=== PATIENT | female | born 1950 | race Caucasian/White ===

== ENCOUNTER 2022-12-16 07:11 | Inpatient (IN) ==
--- NOTE | 2022-11-14 16:09 | PAT Medication Instructions ---
Medication Instructions Date of Service November 14, 2022 Home Medications L.acidophilus,rhamnosus-B.breve-S.thermophilus 3 billion cell chew tab 1 tab PO QAM amlodipine 5 mg tablet 5 mg PO QAM aspirin 81 mg tablet,delayed release 81 mg PO QAM atorvastatin 40 mg tablet 40 mg PO HS biotin 10,000 mcg disintegrating tablet 10,000 mcg PO QAM calcium carbonate 600 mg-vitamin D3 5 mcg (200 unit) capsule (Calcium 600 + D(3)) 1 cap PO QAM cholecalciferol (vitamin D3) 25 mcg (1,000 unit) tablet (Vitamin D3) 5,000 unit PO 3XWK coQ10 (ubiquinol) 200 mg capsule 400 mg PO QAM cyanocobalamin (vitamin B-12) 1,000 mcg tablet 1,000 mcg PO QAM docusate sodium 100 mg tablet (Stool Softener) 250 mg PO QAM duloxetine 60 mg capsule,delayed release sprinkle 60 mg PO QAM fluticasone propionate 50 mcg/actuation nasal spray,suspension 1 spray intranasal BID PRN irbesartan 300 mg tablet 300 mg PO QAM liraglutide 0.6 mg/0.1 mL (18 mg/3 mL) subcutaneous pen injector (Victoza 2-Stephane) 0.6 mg subcut QAM metformin 1,000 mg tablet 1,000 mg PO QAM montelukast 10 mg tablet 10 mg PO HS fzdqxsmqvjyk-znktveks-lassbw tablet 1 tab PO QAM pantoprazole 40 mg tablet,delayed release 40 mg PO QAM spironolactone 25 mg tablet 25 mg PO QAM sucralfate 1 gram tablet 1 g PO BID acetaminophen 650 mg tablet,extended release 650 mg PO UD PRN albuterol sulfate 90 mcg/actuation aerosol inhaler 1 inh inhalation UD PRN fluticasone 250 mcg-salmeterol 50 mcg/dose blistr powdr for inhalation (Advair Diskus) 1 inh inhalation BID insulin glargine 100 unit/mL (3 mL) subcutaneous pen (Lantus Solostar U-100 Insulin) 20 unit subcut BID potassium chloride 10 mEq capsule,extended release 10 meq PO BID propranolol 60 mg capsule,24 hr,extended release 60 mg PO HS torsemide 20 mg tablet 40 mg PO QAM Continue as directed albuterol sulfate 90 mcg/actuation aerosol inhaler 1 inh inhalation UD PRN(use if needed; please bring with you to hospital day of surgery if possible) ASK your prescriber and surgeon aspirin 81 mg tablet,delayed release 81 mg PO QAM STOP taking 2 weeks before surgery (or as soon as possible if surgery is within 2 weeks) biotin 10,000 mcg disintegrating tablet 10,000 mcg PO QAM coQ10 (ubiquinol) 200 mg capsule 400 mg PO QAM DO NOT take the morning of surgery L.acidophilus,rhamnosus-B.breve-S.thermophilus 3 billion cell chew tab 1 tab PO QAM calcium carbonate 600 mg-vitamin D3 5 mcg (200 unit) capsule (Calcium 600 + D(3)) 1 cap PO QAM cholecalciferol (vitamin D3) 25 mcg (1,000 unit) tablet (Vitamin D3) 5,000 unit PO 3XWK cyanocobalamin (vitamin B-12) 1,000 mcg tablet 1,000 mcg PO QAM docusate sodium 100 mg tablet (Stool Softener) 250 mg PO QAM irbesartan 300 mg tablet 300 mg PO QAM liraglutide 0.6 mg/0.1 mL (18 mg/3 mL) subcutaneous pen injector (Victoza 2-Stephane) 0.6 mg subcut QAM metformin 1,000 mg tablet 1,000 mg PO QAM galqpxjxymeq-ynueacdl-fmzltt tablet 1 tab PO QAM spironolactone 25 mg tablet 25 mg PO QAM sucralfate 1 gram tablet 1 g PO BID potassium chloride 10 mEq capsule,extended release 10 meq PO BID torsemide 20 mg tablet 40 mg PO QAM Take morning of surgery With a small sip of water, OTHERWISE NOTHING TO EAT OR DRINK AFTER MIDNIGHT: amlodipine 5 mg tablet 5 mg PO QAM duloxetine 60 mg capsule,delayed release sprinkle 60 mg PO QAM fluticasone propionate 50 mcg/actuation nasal spray,suspension 1 spray intranasal BID PRN(if needed) pantoprazole 40 mg tablet,delayed release 40 mg PO QAM acetaminophen 650 mg tablet,extended release 650 mg PO UD PRN(if needed) fluticasone 250 mcg-salmeterol 50 mcg/dose blistr powdr for inhalation (Advair Diskus) 1 inh inhalation BID Take evening before surgery atorvastatin 40 mg tablet 40 mg PO HS fluticasone propionate 50 mcg/actuation nasal spray,suspension 1 spray intranasal BID PRN(if needed) montelukast 10 mg tablet 10 mg PO HS sucralfate 1 gram tablet 1 g PO BID fluticasone 250 mcg-salmeterol 50 mcg/dose blistr powdr for inhalation (Advair Diskus) 1 inh inhalation BID insulin glargine 100 unit/mL (3 mL) subcutaneous pen (Lantus Solostar U-100 Insulin) 20 unit subcut BID potassium chloride 10 mEq capsule,extended release 10 meq PO BID propranolol 60 mg capsule,24 hr,extended release 60 mg PO HS Insulin Dependent Diabetic Patients * Test your blood sugar the morning of surgery * If Blood Sugar is GREATER THAN 150, take HALF of your regular dose of: insulin glargine 100 unit/mL (3 mL) subcutaneous pen (Lantus Solostar U-100 Insulin). * If Blood Sugar is LESS THAN 150, DO NOT TAKE ANY: insulin glargine 100 unit/mL (3 mL) subcutaneous pen (Lantus Solostar U-100 Insulin). Other Notes If you have any questions please call us at [phone] or [phone] or [phone] or [phone]
--- NOTE | 2022-11-22 11:06 | Anesthesiology Consultation ---
Date of Service November 22, 2022 Assessment & Plan (1) Encounter for pre-operative examination: - check BSG am DOS. - K 5.2, Cr 1.7-PAT testing to be faxed to PCP: awaiting 11/25/22 PCP Laith Ga pre-op evaluation and 12/09/22 [facility] pre- op evaluation. Chart Review Chart Review: Pending: Refer to Additional Notes / Consult section and Patient seen in Pre Admission Testing Teaching & Discussion Pre-Anesthesia Teaching/Discussion Notes: Instructed NPO after midnight before surgery, except medications with 15 cc of water. Medication instructions provided according to the PAT guidelines. History Surgery Operation Date: 12/16/22 10:05 Proposed Procedures p T12-L2 Decompression, T11-L2 Fusion, Spinal Cord Monitoring - Chase Goss DO Pt accompanied today by her . Height/Weight Height: 5 ft 6 in Weight: 87.5 kg Allergies Allergy/AdvReac Type Severity Reaction Status Date / Time cefaclor Allergy Unknown rash/swelli Verified 11/14/22 14:03 ng Cephalosporins Allergy Unknown RASH/SWELLI Verified 11/14/22 14:03 NG erythromycin base Allergy Unknown rash,edema, Verified 11/22/22 11:14 redness gatifloxacin Allergy Unknown SWELLING Verified 11/14/22 14:03 AND RED RASH Macrolide Antibiotics Allergy Unknown SWELLING Verified 11/14/22 14:03 Penicillins Allergy Unknown RASH Verified 11/14/22 14:03 Quinolones Allergy Unknown RASH/SWELLI Verified 11/14/22 14:03 NG tetracycline Allergy Unknown SWELLING Verified 11/14/22 14:03 AND RED RASH tetanus toxoid, adsorbed AdvReac Unknown "TETANUS Verified 11/14/22 14:03 SERUM"-LG HOT SOLID LUMP AT INJECTION SITE Medications Home Medications Medication Instructions Recorded Confirmed Last Taken L.acidophilus,rhamnosus-B.breve-S.thermophilus 1 tab PO QAM 05/26/20 11/14/22 06/08/20 07:30 3 billion cell chew tab amlodipine 5 mg tablet 5 mg PO QAM 05/26/20 11/14/22 06/09/20 07:00 aspirin 81 mg tablet,delayed 81 mg PO QAM 05/26/20 11/14/22 06/09/20 07:00 release atorvastatin 40 mg tablet 40 mg PO HS 05/26/20 11/14/22 06/08/20 22:00 biotin 10,000 mcg disintegrating 10,000 mcg PO QA 05/26/20 11/14/22 06/08/20 07:00 tablet calcium carbonate 600 mg-vitamin 1 cap PO QA 05/26/20 11/14/22 06/08/20 07:00 D3 5 mcg (200 unit) capsule (Calcium 600 + D(3)) cholecalciferol (vitamin D3) 25 5,000 unit PO 3XWK 05/26/20 11/14/22 06/08/20 07:00 mcg (1,000 unit) tablet (Vitamin D3) coQ10 (ubiquinol) 200 mg capsule 400 mg PO [facility] 05/26/20 11/14/22 06/08/20 07:00 cyanocobalamin (vitamin B-12) 1,000 mcg PO [facility] 05/26/20 11/14/22 06/08/20 07:00 1,000 mcg tablet docusate sodium 100 mg tablet 250 mg PO [facility] 05/26/20 11/14/22 06/08/20 07:00 (Stool Softener) duloxetine 60 mg capsule,delayed 60 mg PO [facility] 05/26/20 11/14/22 06/09/20 07:00 release sprinkle fluticasone propionate 50 1 spray intranasal BID PRN ALLERGY 05/26/20 11/14/22 06/09/20 07:00 mcg/actuation nasal RELIEF spray,suspension irbesartan 300 mg tablet 300 mg PO [facility] 05/26/20 11/14/22 06/08/20 07:00 liraglutide 0.6 mg/0.1 mL (18 mg/3 0.6 mg subcut [facility] 05/26/20 11/14/22 06/08/20 07:00 mL) subcutaneous pen injector (Victoza 2-Stephane) metformin 1,000 mg tablet 1,000 mg PO [facility] 05/26/20 11/14/22 06/08/20 18:00 montelukast 10 mg tablet 10 mg PO 05/26/20 11/14/22 06/08/20 22:00 xecjxzxlvnbd-zmihdfwi-euhszq tablet 1 tab PO [facility] 05/26/20 11/14/22 06/08/20 07:00 pantoprazole 40 mg tablet,delayed 40 mg PO QAM 05/26/20 11/14/22 06/09/20 07:00 release spironolactone 25 mg tablet 25 mg PO QAM 05/26/20 11/14/22 06/08/20 07:00 sucralfate 1 gram tablet 1 g PO BID 05/26/20 11/14/22 06/08/20 18:00 acetaminophen 650 mg 650 mg PO UD PRN Pain 06/09/20 11/14/22 06/08/20 23:00 tablet,extended release albuterol sulfate 90 mcg/actuation 1 inh inhalation UD PRN suspected 11/14/22 11/14/22 Unknown aerosol inhaler asthma fluticasone 250 mcg-salmeterol 50 1 inh inhalation BID 11/14/22 11/14/22 Unknown mcg/dose blistr powdr for inhalation (Advair Diskus) insulin glargine 100 unit/mL (3 20 unit subcut BID 11/14/22 11/14/22 Unknown mL) subcutaneous pen (Lantus Solostar U-100 Insulin) potassium chloride 10 mEq 10 meq PO BID 11/14/22 11/14/22 Unknown capsule,extended release propranolol 60 mg capsule,24 60 mg PO HS 11/14/22 11/14/22 Unknown hr,extended release torsemide 20 mg tablet 40 mg PO QAM 11/14/22 11/14/22 Unknown Past Medical History Medical History Abnormal kidney function Diabetic DrJeannette recommended nephrology visit/not yet scheduled. Anxiety and depression Stable Asthma suspected/ advair has helped never had to use rescue inhaler. CVA (cerebral infarction) (03/07/14) Diabetes mellitus, type 2 IDDM GERD (gastroesophageal reflux disease) Well controlled and stable with med History of melanoma nasal s/p Mohs History of Mohs micrographic surgery for skin cancer NOSE Hyperlipidemia Hypertension controlled, stable per pt Memory problem mild memory loss per pt, signs own consents Patent foramen ovale hx "VERY SMALL PER PATIENT" Peripheral neuropathy Mostly to feet Sleep apnea not currently on CPAP Spinal stenosis Transient ischemic attack (TIA) 2013 - no residual defects- no issues since that time Tremor of both hands tremors of hands/jaw and lip Neuro: [facility]. Suspected parkinsons/not officially dx as of current. Patient denies h/o seizures, heart attack, heart failure, blood clots or blood transfusions. Exercise / Class Metabolic Activity III < 4 Walking/Shop/Light housework (denies chest discomfort or shortness of breath with usual activities) Past Family History Family History Mother Family history of diabetes mellitus Grandmother (Maternal) Family history of diabetes mellitus Past Surgical History Surgical History (Updated 11/22/22 @ 13:06 by Carmen Szymanski PA-C) Family history of reaction to anesthesia MOTHER-EXTREME NAUSEA Fusion of spine lumbar 2013 Ganglion cyst left ring finger 2014 History of appendectomy History of bilateral tubal ligation 1987 History of cardiac cath x3 total 1991 or 1992 (no stents) Dr. Starr hx chest pains...15 yr ago most recent (no stents) - [place] 12/06/2021...Dr. Villarreal wanted to check pressure on right side of heart - [facility] - (no stents) History of carpal tunnel release RT/LEFT 2009 History of cataract surgery RT/LEFT 2016 History of colonoscopy History of dilatation and curettage 1978, 1982 History of esophagogastroduodenoscopy (EGD) History of partial hysterectomy 1990 History of surgery 2020, 2 screws right hip/"sacral infusion" SI joint fusion 06/09/2021 Grade 1 view, MAC 3, ETT 7. History of tonsillectomy and adenoidectomy 1970 History of tooth extraction 2019; implants lower jaw 2019 History of total knee replacement RT 2007/LEFT 2014 Hx of bilateral oophorectomy 1992 Past Anesthesia History No Hx of Anesthesia Complications and Other (mother with nausea) History of PONV No Hx of PONV and No Hx of Motion Sickness Social History Smoking Status: Never smoker Do You Dip or Chew Tobacco: No Hx Alcohol Use: No Hx Substance Use: No substance use type: does not use Review of Systems Patient denies chest pain, shortness of breath, dyspnea on exertion, fever, chills, cough, wheezing, or palpitations. Physical Exam Vital Signs Vitals BP 111/75 P 74 TEMP 98.2 SP02 96% on RA RESP 18 Physical Patient resting comfortably in chair in NAD, alert and oriented, responding appropriately throughout visit Full cervical extension range of motion without pain TMD 3.5 finger breadths Mallampati Score 2 Dentition: intact, denies chipped or loose teeth, caps/crowns, implants or bridges Lungs: normal respiratory effort. Good air movement, clear throughout to auscultation, no adventitious breath sounds Cardiac: regular rate and rhythm, no murmurs noted Carotid arteries: negative bruit bilat Lab Results Anesthesia Preop Results Results Anesthesia Widget: WBC 5.44 K/ul (4.8-10.8) 11/22/22 Hgb 12.3 g/dl (12.0-16.0) 11/22/22 Hct 36.4 % (37.0-47.0) L 11/22/22 Plt 281 K/uL (130-400) 11/22/22 Na 137 mmol/L (136-145) 11/22/22 K 5.2 mmol/L (3.5-5.1) H 11/22/22 Cl 104 mmol/L (98-107) 11/22/22 CO2 24 mmol/L (21-32) 11/22/22 BUN 29 mg/dl (6-23) H 11/22/22 Creat 1.71 mg/dl (0.6-1.2) H 11/22/22 Glucose Level 137 mg/dl (70-99(Fasting)) H 11/22/22 PT 10.0 Seconds (9.0-12.0) 11/22/22 PTT 24.4 Seconds (21.0-31.0) 11/22/22 INR 0.9 (0.9-1.1) 11/22/22 HA1c 7.6 % (4.5-5.6) H 11/22/22 Urine Color Yellow 11/22/22 Urine Appearance Clear (Clear) 11/22/22 Urine pH 5.0 (4.5-7.5) 11/22/22 Urine Specific [place] 1.006 (1.000-1.030) 11/22/22 Urine Protein Negative (Negative) 11/22/22 Urine Glucose (UA) Negative (Negative) 11/22/22 Urine Ketones Negative (Negative) 11/22/22 Urine Blood Negative (Negative) 11/22/22 Urine Nitrite Negative (Negative) 11/22/22 Urine Bilirubin Negative (Negative) 11/22/22 Urine Urobilinogen Negative (Negative) 11/22/22 Urine Leukocyte Esterase Negative (Negative) 11/22/22 Blood Type A Positive 11/22/22 Antibody Screen NEGATIVE 11/22/22 Testing Electrocardiogram Date: 11/22/22 NSR, rate 67 bpm Low voltage QRS Chest X-Ray Date: 11/22/22 No acute cardiopulmonary findings Echocardiogram Date: 05/25/21 EF 55% No regional wall motion abnormalities No significant valvular pathology Stress Test Date: 03/27/22 No ischemia/infarction MPHR 74% EF 52% Pulmonary Function Test Date: 01/28/22 Normal spirogram with a significant response to an inhaled bronchodilator in the smaller airways Normal lung volumes Mild reduction in diffusion capacity even when corrected for alveolar volume
[~2022-12-16 07:11] MED LIST: 300mg Preop IV SCH; 600mg Preop IV SCH; ACETAMINOPHEN 500 MG TAB PO SCH; CeleBREX 200 MG CAP PO SCH; GABAPENTIN 300 MG CAP PO SCH; LR 60ML/HR IV SCH; SODIUM CHLORIDE 0.9% 1000ML IV SCH
[2022-12-16] MEDS ORDERED: LIDOCAINE 2% 2 ML VIAL/AMP(20MG/ML) INFIL ONE (08:15)
[2022-12-16] MEDS ORDERED: MIDAZOLAM HCL 1 MG/ML 2ML VIAL ONE (08:15)
[2022-12-16] MEDS ORDERED: DEXAMETHASONE SOD INJ 4 MG/ML VIAL ONE (08:15)
[2022-12-16] MEDS ORDERED: fentaNYL citrate PF 100 MCG/2 ML VIAL ONE ×2 (08:15→11:32)
[2022-12-16] MEDS ORDERED: ROCURONIUM BROMIDE 10 MG/ML 5 ML VIAL IV ONE ×2 (08:15→10:02)
[2022-12-16] MEDS ORDERED: PROPOFOL IV EMULSION 10 MG/ML 20 ML VIAL IV ONE (08:15)
[2022-12-16] MEDS ORDERED: ONDANSETRON INJ 2 MG/ML 2 ML VIAL ONE (08:15)
--- NOTE | 2022-12-16 08:24 | History & Physical Bridge Note ---
Date of Service December 16, 2022 History & Physical Bridge Note I have examined the patient, reviewed the History & Physical and in the interval since the performance of the History & Physical I have noted the following changes of clinical significance: no changes noted
--- NOTE | 2022-12-16 08:25 | History & Physical Report ---
Date of Service December 16, 2022 Assessment & Plan (1) Neurogenic claudication due to lumbar spinal stenosis: Plan: T12-L2 decompression, T11-L2 fusion History of Present Illness Chief Complaint: Back and leg pain Primary Care Provider: Laith Ga This is a 72-year-old female known to us presents with chronic persistent back and leg pain after failing course of nonoperative care she is here for surgical invention. Allergies Allergy/AdvReac Type Severity Reaction Status Date / Time cefaclor Allergy Unknown rash/swelli Verified 12/16/22 08:06 ng Cephalosporins Allergy Unknown RASH/SWELLI Verified 12/16/22 08:06 NG erythromycin base Allergy Unknown rash,edema, Verified 12/16/22 08:06 redness gatifloxacin Allergy Unknown SWELLING Verified 12/16/22 08:06 AND RED RASH Macrolide Antibiotics Allergy Unknown SWELLING Verified 12/16/22 08:06 Penicillins Allergy Unknown RASH Verified 12/16/22 08:06 Quinolones Allergy Unknown RASH/SWELLI Verified 12/16/22 08:06 NG tetracycline Allergy Unknown SWELLING Verified 12/16/22 08:06 AND RED RASH tetanus toxoid, adsorbed AdvReac Unknown "TETANUS Verified 12/16/22 08:06 SERUM"-LG HOT SOLID LUMP AT INJECTION SITE Home Medications Medication Instructions Recorded Confirmed Type L.acidophilus,rhamnosus-B.breve-S.thermophilus 1 tab PO QAM 05/26/20 12/16/22 History 3 billion cell chew tab amlodipine 5 mg tablet 5 mg PO QAM 05/26/20 12/16/22 History aspirin 81 mg tablet,delayed 81 mg PO QAM 05/26/20 12/16/22 History release atorvastatin 40 mg tablet 40 mg PO HS 05/26/20 12/16/22 History biotin 10,000 mcg disintegrating 10,000 mcg PO QAM 05/26/20 12/16/22 History tablet calcium carbonate 600 mg-vitamin 1 cap PO QAM 05/26/20 12/16/22 History D3 5 mcg (200 unit) capsule (Calcium 600 + D(3)) cholecalciferol (vitamin D3) 25 5,000 unit PO 3XWK 05/26/20 12/16/22 History mcg (1,000 unit) tablet (Vitamin D3) coQ10 (ubiquinol) 200 mg capsule 400 mg PO QAM 05/26/20 12/16/22 History cyanocobalamin (vitamin B-12) 1,000 mcg PO QAM 05/26/20 12/16/22 History 1,000 mcg tablet docusate sodium 100 mg tablet 250 mg PO QAM 05/26/20 12/16/22 History (Stool Softener) duloxetine 60 mg capsule,delayed 60 mg PO QAM 05/26/20 12/16/22 History release sprinkle fluticasone propionate 50 1 spray intranasal BID PRN ALLERGY 05/26/20 12/16/22 History mcg/actuation nasal RELIEF spray,suspension irbesartan 300 mg tablet 300 mg PO QAM 05/26/20 12/16/22 History liraglutide 0.6 mg/0.1 mL (18 mg/3 0.6 mg subcut QAM 05/26/20 12/16/22 History mL) subcutaneous pen injector (JoopLoopza 2-Stephane) metformin 1,000 mg tablet 1,000 mg PO QAM 05/26/20 12/16/22 History montelukast 10 mg tablet 10 mg PO HS 05/26/20 12/16/22 History dspwrpkqtcae-dlpejzwr-kbrntg tablet 1 tab PO QAM 05/26/20 12/16/22 History pantoprazole 40 mg tablet,delayed 40 mg PO QAM 05/26/20 12/16/22 History release spironolactone 25 mg tablet 25 mg PO QAM 05/26/20 12/16/22 History (Aldactone) sucralfate 1 gram tablet (Carafate) 1 g PO BID 05/26/20 12/16/22 History acetaminophen 650 mg 650 mg PO UD PRN Pain 06/09/20 12/16/22 History tablet,extended release albuterol sulfate 90 mcg/actuation 1 inh inhalation UD PRN suspected 11/14/22 12/16/22 History aerosol inhaler asthma fluticasone 250 mcg-salmeterol 50 1 inh inhalation BID 11/14/22 12/16/22 History mcg/dose blistr powdr for inhalation (Advair Diskus) insulin glargine 100 unit/mL (3 20 unit subcut BID 11/14/22 12/16/22 History mL) subcutaneous pen (Lantus Solostar U-100 Insulin) potassium chloride 10 mEq 10 meq PO BID 11/14/22 12/16/22 History capsule,extended release propranolol 60 mg capsule,24 60 mg PO HS 11/14/22 12/16/22 History hr,extended release torsemide 20 mg tablet 40 mg PO QAM 11/14/22 12/16/22 History Past Med/Surg History Medical History (Updated 12/16/22 @ 08:25 by Chase Goss DO) Abnormal kidney function Diabetic recommended nephrology visit/not yet scheduled. Anxiety and depression Stable Asthma suspected/ advair has helped never had to use rescue inhaler. CVA (cerebral infarction) (03/07/14) Diabetes mellitus, type 2 IDDM GERD (gastroesophageal reflux disease) Well controlled and stable with med History of melanoma nasal s/p Mohs History of Mohs micrographic surgery for skin cancer NOSE Hyperlipidemia Hypertension controlled, stable per pt Memory problem mild memory loss per pt, signs own consents Patent foramen ovale hx "VERY SMALL PER PATIENT" Peripheral neuropathy Mostly to feet Sleep apnea not currently on CPAP Spinal stenosis Transient ischemic attack (TIA) 2013 - no residual defects- no issues since that time Tremor of both hands tremors of hands/jaw and lip Neuro: [facility]. Suspected parkinsons/not officially dx as of current. Surgical History Family history of reaction to anesthesia MOTHER-EXTREME NAUSEA Fusion of spine lumbar 2013 Ganglion cyst left ring finger 2015 History of appendectomy History of bilateral tubal ligation 1987 History of cardiac cath x3 total 1991 or 1992 (no stents) Dr. Starr hx chest pains...15 yr ago most recent (no stents) - [place] 12/06/2021...Dr. Villarreal wanted to check pressure on right side of heart - [facility] - (no stents) History of carpal tunnel release RT/LEFT 2008 History of cataract surgery RT/LEFT 2016 History of colonoscopy History of dilatation and curettage 1978, 1982 History of esophagogastroduodenoscopy (EGD) History of partial hysterectomy 1990 History of surgery 2020, 2 screws right hip/"sacral infusion" SI joint fusion 06/09/2021 Grade 1 view, MAC 3, ETT 7. History of tonsillectomy and adenoidectomy 1970 History of tooth extraction 2019; implants lower jaw 2019 History of total knee replacement RT LEFT 2014 Hx of bilateral oophorectomy 1992 Family History Mother Family history of diabetes mellitus Grandmother (Maternal) Family history of diabetes mellitus Social History Smoking Status: Never smoker Second Hand Exposure: Yes ( A CHILD); Do You Dip or Chew Tobacco: No; Hx Alcohol Use: No Hx Substance Use: No Preferred Language: Sudanese Communication Ability: Effective [employer] Required: No Beliefs That Will Affect Care: None Current Living Situation: Spouse Other Information That Helps Us Care for You: No Feels Safe at Home: Yes Assistive Devices: Cane, Denture - Upper, Denture - Lower and Glasses Physical Exam Physical Exam: Patient is alert and oriented Heart regular rhythm Lungs clear Results & Data Results & Data Vital Signs (Past 12 Hours) Vital Signs Temp Pulse Resp BP Pulse Ox O2 Del Method 12/16/22 07:54 36.4 C L 72 18 129/61 97 Room Air
[2022-12-16 08:36] LABS: Anion Gap 9 (3-11); BUN Creatinine Ratio 20.8 (10-20); Blood Urea Nitrogen 31 mg/dl (6-23); Calcium 9.6 mg/dl (8.6-10.3); Carbon Dioxide 24 mmol/L (21-32); Chloride 104 mmol/L (98-107); Creatinine Clr Calc Pharmacy 38.1 ml/min; Est GFR (African American) 40.2 ml/min; Est GFR (Non-African American) 34.7 ml/min; Glucose 132 mg/dl (70-99(Fasting)); Sodium 137 mmol/L (136-145)
[2022-12-16] MEDS ORDERED: BUPIVACAINE/EPINEPHRINE 0.25% 1:200,000 30 ML VIAL ONE (08:58)
[2022-12-16] MEDS ORDERED: FLOSEAL HEMOSTATIC MATRIX 10ML TOP ONE (10:30)
[2022-12-16] MEDS ORDERED: ePHEDrine sulfate 50 MG/ML SYR ONE (10:59)
[2022-12-16] MEDS ORDERED: PHENYLEPHRINE 100MCG/ML 5ML SYR ONE (10:59)
[2022-12-16] MEDS ORDERED: HYDROmorphone INJ 1 MG/ML SYRINGE IV PRN ×2 (11:08→14:07)
[2022-12-16] MEDS ORDERED: PROMETHAZINE HCL 12.5 MG in SODIUM CHLORIDE 0.9% 50 ML IV PRN ×2 (11:08→14:07)
[2022-12-16] MEDS ORDERED: ePHEDrine sulfate 50 MG/ML AMP IV PRN (11:08)
[2022-12-16] MEDS ORDERED: ATROPINE SULFATE 0.1 MG/ML 10ML SYR IV PRN (11:08)
[2022-12-16] MEDS ORDERED: FLUMAZENIL 0.1 MG/1 ML 10 ML VIAL IV PRN (11:08)
[2022-12-16] MEDS ORDERED: ONDANSETRON INJ 2 MG/ML 2 ML VIAL IV PRN ×2 (11:08→14:07)
[2022-12-16] MEDS ORDERED: NALOXONE HCL 0.4 MG/1 ML VIAL/CARP IV PRN ×2 (11:08→14:07)
[2022-12-16] MEDS ORDERED: LABETALOL HCL IV 5 MG/ML 20ML IV PRN (11:08)
[2022-12-16] MEDS ORDERED: GLYCOPYRROLATE 0.2 MG/ML VIAL ONE (11:45)
[2022-12-16] MEDS ORDERED: NEOSTIGMINE METHYLSULFATE 1 MG/ML 10ML VIAL ONE (11:45)
--- NOTE | 2022-12-16 11:52 | Operative Report ---
Post Operative Report Pre & Post Diagnosis Operation Date: 12/16/22 09:05 Pre-Op Diagnosis: Neurogenic claudication due to lumbar spinal stenosis Post-Op Diagnosis: Neurogenic claudication due to lumbar spinal stenosis I identified the patient and participated in the time-out.: Yes Procedure Operation Date: 12/16/22 09:05 Actual Procedures #1 removal of posterior instrumentation L3 on the left and L2 on the right including pedicle screws connectors. #2 exploration of fusion L4 to to L3. #3 lumbar decompression bilaterally vasectomies and foraminotomies T12-L1 L1-L2. #4 posterior spinal fusion T10-L2. #5 please posterior instrumentation T10-L1 with barrel connectors to the previous rods. #6 interbody fusion L1-L2. #7 placement spiral 8 x 22 mm at L1-L2. #8 placement locally harvested morselized Posterior gutters. 9 placement of infuse collagen sponge, mass graft in the posterior gutters and I factor in the interbody space. Surgeon Chase Goss, Director Medical Kelsy Edgar Estimated Blood Loss 350 Findings Consistent with Post-Op Diagnosis Specimens None Indications This is a 72-year-old female presents above-mentioned diagnosis after failing since course of nonoperative care she is here for surgical intervention. Description of Procedure Patient was met with identified informed consent obtained. Patient was then taken to the operative suite underwent patient placed in a prone position on the [place] table top Kade frame. All bony prominences well-padded eyes inspected to ensure no external pressure placed upon the. This point the thoracolumbar spine was prepped and draped in a sterile fashion. Sharp dissection with assistance. Paraspinal down to exposing the lamina and transverse processes of [id number] L1 and instrumentation at L2-L3 bilaterally. I then proceeded to move the pedicle screw and connector at L2 on the left followed by L3 on the right. Explored the fusion mass noted to be mature and intact. I then performed a complete laminectomy of L1 partially negative T12 including bilateral male facetectomies and foraminotomies addressing severe spinal stenosis. Pedicle screws were then placed in [id number] and L1 bilaterally with assistance of fluoroscopy and bilateral transforaminal approach on the right and complete discectomy of L1-L2 was performed endplates guarded to subcortical mean bone and 8 x 22 mm prior cage with I factor tapped in position. The process rods were then contoured and locked into place bilaterally including a barrel connector on the previous rods. The transverse processes of T10-T11 T12-L1 and L2 were then burred to subcortical bone. Infuse collagen sponge for mass graft locally harvested most as a graft was placed in the posterior gutters. 15 round CIELO inserted. The incision was then closed with 1 Vicryl fascia 2-0 Vicryl subcutaneously and 4 Monocryl for final skin closure. Steri-Strips sterile dressings placed. Patient waken taken to PACU in stable condition. Please note spinal cord monitoring was utilized at the procedure no changes noted. Lastly Kelsy Edgar was present that the entire surgeon while the patient positioning complex course of the surgery and possible closure. I attest to the content of the Intraoperative Record and any orders documented therein. Any exceptions are noted below.
[2022-12-16] MEDS: fentaNYL citrate PF 100 MCG/2 ML VIAL IV PRN ×4 (12:42→12:57)
--- NOTE | 2022-12-16 13:08 | Anesthesiology Progress Note ---
Date of Service December 16, 2022 Anesthesia Post Procedure Vital Signs Vital Signs: Temp Pulse Resp BP Pulse Ox O2 Del Method O2 Flow Rate 12/16/22 12:55 66 13 103/59 L 95 Nasal Cannula 2 12/16/22 12:45 64 15 107/61 97 Nasal Cannula 2 12/16/22 12:35 67 15 103/64 96 Oxymask 5 12/16/22 12:25 71 17 89/58 L 95 Oxymask 5 12/16/22 12:15 36.2 C L 81 18 106/74 97 Oxymask 8 12/16/22 07:54 36.4 C L 72 18 129/61 97 Room Air Transfer of Care Handoff Completed per policy Notes Mental Status: alert / awake / arousable Patient Amnestic to Procedure: Yes Nausea / Vomiting: adequately controlled Pain: adequately controlled Airway Patency, RR, SpO2: stable & adequate BP & HR: stable & adequate Hydration State: stable & adequate Anesthetic Complications: no major complications apparent
--- NOTE | 2022-12-16 13:18 | Fluoroscopy Report ---
INTRAOPERATIVE RADIOGRAPHS CLINICAL HISTORY: Thoracolumbar spinal fusion. Fluoro time: 46 seconds Ka,r: 29.38 mGy FINDINGS: 5 spot fluoroscopic views of the thoracolumbar spine are presented. There is postsurgical c hange from extensive thoracolumbar spinal fusion surgery. Discectomy change is noted at a single leve l. The orthopedic hardware appears intact. The exact fusion levels cannot be delineated on the provid ed images. IMPRESSION: Intraoperative images from thoracolumbar spinal fusion surgery as above. Electronically signed by: Orlando Chapman M.D. 12/16/2022 1:17 PM
[2022-12-16] MEDS ORDERED: diphenhydrAMINE Capsule 25 MG CAP PO PRN (14:07)
[2022-12-16] MEDS ORDERED: traMADol HCL 50 MG TABLET PO PRN (14:07)
[2022-12-16] MEDS ORDERED: DO NOT ADMINISTER FLU VACCINE PRN (14:07)
[2022-12-16] MEDS ORDERED: ACETAMINOPHEN 1,000 MG/100 ML VIAL IV PRN (14:07)
[2022-12-16] MEDS ORDERED: hydrOXYzine HCl 25 MG TAB PO PRN (14:07)
[2022-12-16] MEDS ORDERED: SOD PHOSPHATE/SOD BIPHOSPHATE ENEMA 132 ML BTL PR PRN (14:07)
[2022-12-16] MEDS ORDERED: ONDANSETRON 4 MG OD TAB PO PRN (14:07)
[2022-12-16] MEDS ORDERED: FAMOTIDINE 20 MG TAB PO PRN (14:07)
[2022-12-16] MEDS ORDERED: LORazepam 2 MG/1 ML VIAL IV PRN (14:07)
[2022-12-16] MEDS ORDERED: DO NOT ADMINISTER PNEUMOCOCCAL VACCINE PRN (14:07)
[2022-12-16] MEDS ORDERED: PHARMACY GLYCEMIC MGMT CONSULT PRN (14:07)
[2022-12-16] MEDS ORDERED: HYDROmorphone INJ 0.5 MG/0.5 ML SYR IV PRN (14:07)
[2022-12-16] MEDS ORDERED: METOCLOPRAMIDE HCL INJ 5 MG/ML 2 ML VIAL IV PRN (14:07)
[2022-12-16] MEDS ORDERED: LORazepam 0.5 MG TAB PO PRN (14:07)
[2022-12-16] MEDS ORDERED: ALUMINUM/MAGNESIUM SUSP 30 ML UDC PO PRN (14:07)
[2022-12-16] MEDS ORDERED: bisacodyL 10 MG SUPP PR PRN (14:07)
[2022-12-16] MEDS ORDERED: MAGNESIUM HYDROXIDE SUSP 30 ML UDC PO PRN (14:07)
--- NOTE | 2022-12-16 14:21 | Pharmacy Report ---
Pharmacy Glycemic Short Note 2 - Date of Service December 16, 2022 - Glycemic Short BSG Results (Last 24 hours): 12/16/22 12/16/22 12/16/22 07:50 08:08 12:15 Glucose 132 H POC Glucose 142 H 199 H OUTPATIENT ANTIDIABETIC REGIMEN: * Lantus 20 units SC BID * Metformin 1000 mg PO daily * Victoza 0.6 mg SC daily HbA1c: 7.6% (11/22/22) ASSESSMENT: * DL is a 72 year old female POD #0 s/p spinal surgery, received 8 mg IV dexamethasone in OR * Ordered dexamethasone 6 mg IV daily x 3 days starting tomorrow 12/17/22 * Preop BSG of 142 mg/dL, postop BSG of 199 mg/dL * Last dose of Lantus was 20 units last evening * Will give ~0.4 unit/kg basal now to cover steroids w/ weight-based stress of 3 Novolog PLAN FOR INPATIENT GLYCEMIC CONTROL: * Hold outpatient oral diabetes medications * Basal insulin * Lantus 35 units SQ x 1 * Reassess in AM * Bolus insulin * NovoLog per scale ACHS or Q6hrs while NPO * Goal Range: Low 110 mg/dL - High 140 mg/dL * Correction Factor: 20 mg/dL/unit * Nutritional / Prandial insulin per carb ratio of 1 unit per 6 grams CHO consumed
[2022-12-16] MEDS ORDERED: DEXTROSE 50% 50 ML SYRINGE IV PRN (14:30)
[2022-12-16] MEDS ORDERED: GLUCOSE 40% GEL 15 GM TUBE PO PRN (14:30)
[2022-12-16] MEDS ORDERED: CARBOHYDRATES FOR HYPOGLYCEMIA PO PRN (14:30)
[2022-12-16] MEDS ORDERED: LANTUS PER UNIT CHARGE SC ONE (14:30)
[2022-12-16] MEDS ORDERED: GLUCAGON FOR INJ 1 MG VIAL IM PRN (14:30)
[2022-12-16] MEDS ORDERED: GLUCOSE 10 TAB/TUBE PO PRN (14:30)
[2022-12-16] MEDS: SODIUM CHLORIDE 0.9% 1000ML 1,000 ML IV SCH ×2 (15:07→23:56)
[2022-12-16] MEDS: CHOLECALCIFEROL 5,000 UNITS 125 MCG TAB PO SCH (15:08)
--- NOTE | 2022-12-16 15:17 | Hospitalist Consultation ---
Date of Consultation December 16, 2022 Assessment & Plan (1) Neurogenic claudication due to lumbar spinal stenosis: POD #0 - T12-L2 decompression/fusion. Medical problems include diabetes and hypertension - Pain control, DVT prophylaxis, activity per primary service - Encourage incentive spirometry - discussed importance with patient - Blood loss 350 ml - check CBC in am to monitor for blood loss anemia - Pt reports some visual changes today post-anesthesia but reports similar issues in the past that resolve within 24 hours - will continue to monitor, if worsening then consider additional work-up. Will re-evaluate tomorrow. (2) DM (diabetes mellitus): Pharmacy consulted for glycemic management - appreciate input (3) HTN (hypertension): (4) High cholesterol: (5) TIA (transient ischemic attack): Plan Outpatient notes from PCP and cardiology as part of pre-operative evaluation were reviewed. Continue other home medications as appropriate. Beta-alessandra will be particularly important in the post-operative period in view of cardiac history. Pt seen and evaluated with collaborating physician, Dr. Melgoza. Plan of care discussed and as outlined above. Thank you for this consultation. We will continue to follow the patient with you. [facility] via [employer]. Please don't hesitate to reach out with questions. Carolyn Arellano PA-C Supervising Physician Co-Signing Physician Notes Reviewed findings along with JOEY Arellano . continue home meds along with beta blockers will continue to follow along side . Thank you for the consultation History of Present Illness Reason for Consultation: Post-operative medical management Requesting Physician: Dr. Chase Goss Attending Physician: Chase Goss DO History of Present Illness This is a 72 y/o female with a history of DM2, HTN, TIA, GERD, sleep apnea (not on CPAP), asthma, and spinal stenosis who underwent T12-L2 decompression/fusion today by Dr. Goss. She had a prior back surgery ten years ago and a sacral fusion two years, which she tolerated without issue. Currently, seen post- operatively in her room and reports pain is overall controlled though still present - rates as 4-5/10 but denies need for additional pain meds at present. She denies nausea or vomiting and is tolerating liquids without difficulty. Denies chest pain, palpitations, dyspnea, LO, dizziness, numbness or tingling. She notes some diplopia but reports similar after previous surgeries that resolved by the next day. Current symptoms are no different than prior. She has a Rivera in place, which is draining clear kian urine. Pre-operative blood sugars have been well-controlled with sugars in the 120s. Allergies Allergy/AdvReac Type Severity Reaction Status Date / Time cefaclor Allergy Unknown rash/swelli Verified 12/16/22 08:06 ng Cephalosporins Allergy Unknown RASH/SWELLI Verified 12/16/22 08:06 NG erythromycin base Allergy Unknown rash,edema, Verified 12/16/22 08:06 redness gatifloxacin Allergy Unknown SWELLING Verified 12/16/22 08:06 AND RED RASH Macrolide Antibiotics Allergy Unknown SWELLING Verified 12/16/22 08:06 Penicillins Allergy Unknown RASH Verified 12/16/22 08:06 Quinolones Allergy Unknown RASH/SWELLI Verified 12/16/22 08:06 NG tetracycline Allergy Unknown SWELLING Verified 12/16/22 08:06 AND RED RASH tetanus toxoid, adsorbed AdvReac Unknown "TETANUS Verified 12/16/22 08:06 SERUM"-LG HOT SOLID LUMP AT INJECTION SITE Home Medications Medication Instructions Recorded Confirmed Type L.acidophilus,rhamnosus-B.breve-S.thermophilus 1 tab PO QAM 05/26/20 12/16/22 History 3 billion cell chew tab amlodipine 5 mg tablet 5 mg PO QAM 05/26/20 12/16/22 History aspirin 81 mg tablet,delayed 81 mg PO QAM 05/26/20 12/16/22 History release atorvastatin 40 mg tablet 40 mg PO HS 05/26/20 12/16/22 History biotin 10,000 mcg disintegrating 10,000 mcg PO QAM 05/26/20 12/16/22 History tablet calcium carbonate 600 mg-vitamin 1 cap PO QAM 05/26/20 12/16/22 History D3 5 mcg (200 unit) capsule (Calcium 600 + D(3)) cholecalciferol (vitamin D3) 25 5,000 unit PO 3XWK 05/26/20 12/16/22 History mcg (1,000 unit) tablet (Vitamin D3) coQ10 (ubiquinol) 200 mg capsule 400 mg PO QAM 05/26/20 12/16/22 History cyanocobalamin (vitamin B-12) 1,000 mcg PO QAM 05/26/20 12/16/22 History 1,000 mcg tablet docusate sodium 100 mg tablet 250 mg PO QAM 05/26/20 12/16/22 History (Stool Softener) duloxetine 60 mg capsule,delayed 60 mg PO QAM 05/26/20 12/16/22 History release sprinkle fluticasone propionate 50 1 spray intranasal BID PRN ALLERGY 05/26/20 12/16/22 History mcg/actuation nasal RELIEF spray,suspension irbesartan 300 mg tablet 300 mg PO QAM 05/26/20 12/16/22 History liraglutide 0.6 mg/0.1 mL (18 mg/3 0.6 mg subcut QAM 05/26/20 12/16/22 History mL) subcutaneous pen injector (Pazienza 2-Stephane) metformin 1,000 mg tablet 1,000 mg PO QAM 05/26/20 12/16/22 History montelukast 10 mg tablet 10 mg PO HS 05/26/20 12/16/22 History yjodeiywqpea-sompbhzd-jqkrkh tablet 1 tab PO QAM 05/26/20 12/16/22 History pantoprazole 40 mg tablet,delayed 40 mg PO QAM 05/26/20 12/16/22 History release spironolactone 25 mg tablet 25 mg PO QAM 05/26/20 12/16/22 History (Aldactone) sucralfate 1 gram tablet (Carafate) 1 g PO BID 05/26/20 12/16/22 History acetaminophen 650 mg 650 mg PO UD PRN Pain 06/09/20 12/16/22 History tablet,extended release albuterol sulfate 90 mcg/actuation 1 inh inhalation UD PRN suspected 11/14/22 12/16/22 History aerosol inhaler asthma fluticasone 250 mcg-salmeterol 50 1 inh inhalation BID 11/14/22 12/16/22 History mcg/dose blistr powdr for inhalation (Advair Diskus) insulin glargine 100 unit/mL (3 20 unit subcut BID 11/14/22 12/16/22 History mL) subcutaneous pen (Lantus Solostar U-100 Insulin) potassium chloride 10 mEq 10 meq PO BID 11/14/22 12/16/22 History capsule,extended release propranolol 60 mg capsule,24 60 mg PO HS 11/14/22 12/16/22 History hr,extended release torsemide 20 mg tablet 40 mg PO QAM 11/14/22 12/16/22 History Patient History Medical History (Updated 12/16/22 @ 08:25 by Chase Goss, DO) Abnormal kidney function Diabetic recommended nephrology visit/not yet scheduled. Anxiety and depression Stable Asthma suspected/ advair has helped never had to use rescue inhaler. CVA (cerebral infarction) (03/07/14) Diabetes mellitus, type 2 IDDM GERD (gastroesophageal reflux disease) Well controlled and stable with med History of melanoma nasal s/p Mohs History of Mohs micrographic surgery for skin cancer NOSE Hyperlipidemia Hypertension controlled, stable per pt Memory problem mild memory loss per pt, signs own consents Patent foramen ovale hx "VERY SMALL PER PATIENT" Peripheral neuropathy Mostly to feet Sleep apnea not currently on CPAP Spinal stenosis Transient ischemic attack (TIA) 2013 - no residual defects- no issues since that time Tremor of both hands tremors of hands/jaw and lip Neuro: [facility]. Suspected parkinsons/not officially dx as of current. Surgical History Family history of reaction to anesthesia MOTHER-EXTREME NAUSEA Fusion of spine lumbar 2013 Ganglion cyst left ring finger 2014 History of appendectomy History of bilateral tubal ligation 1987 History of cardiac cath x3 total 1991 or 1992 (no stents) Dr. Starr hx chest pains...15 yr ago most recent (no stents) - [place] 12/06/2021...Dr. Villarreal wanted to check pressure on right side of heart - [facility] - (no stents) History of carpal tunnel release RT/LEFT 2008 History of cataract surgery RT/LEFT 2016 History of colonoscopy History of dilatation and curettage 1978, 1982 History of esophagogastroduodenoscopy (EGD) History of partial hysterectomy 1990 History of surgery 2020, 2 screws right hip/"sacral infusion" SI joint fusion 06/09/2021 Grade 1 view, MAC 3, ETT 7. 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: No Beliefs That Will Affect Care: None Current Living Situation: Spouse Other Information That Helps Us Care for You: No Feels Safe at Home: Yes Assistive Devices: Cane, Denture - Upper, Denture - Lower and Glasses Review of Systems Review of Systems: All systems reviewed & are unremarkable except as noted in HPI & below Constitutional: no fever, no chills and no anorexia Eyes: + diplopia Ear, Nose, Mouth, Throat: no nasal congestion and no sore throat Respiratory: no cough and no dyspnea Cardiovascular: no chest pain, no palpitations and no syncope Gastrointestinal: no abdominal pain, no nausea and no vomiting Genitourinary: no hematuria Musculoskeletal: + back pain Integumentary: no rash Neurologic: no generalized weakness, no tingling and no numbness Psychiatric: no depression and no anxiety Physical Exam Constitutional: well developed and well nourished; no acute distress Eyes: + anicteric sclerae ENMT: external ear and nose normal, oropharynx normal Neck: trachea midline Respiratory: no respiratory distress and no labored breathing Auscultation: lungs clear to auscultation bilaterally; no rales, no rhonchi and no wheezes Cardiovascular: Rate/Rhythm: regular rate and regular rhythm Gastrointestinal (Abdomen): Inspection/Auscultation: normal bowel sounds; abdomen not distended Percussion/Palpation: abdomen soft Musculoskeletal: Head/Neck/Chest: normocephalic, head atraumatic and neck espana pple Skin: no jaundice Neurologic: moves all extremities; no focal motor deficits and not confused Psychiatric: A+Ox3, euthymic affect Results & Data Results & Data Vital Signs (Past 12 Hours) Vital Signs Temp Pulse Pulse Resp BP Pulse Ox O2 Del Method 12/16/22 14:23 36.8 C 73 16 105/68 98 Room Air 12/16/22 14:22 70 18 99/65 L 95 Nasal Cannula 12/16/22 13:25 Nasal Cannula 12/16/22 13:25 36.5 C 71 18 91/59 L 94 Nasal Cannula 12/16/22 13:05 36.4 C L 69 15 110/58 L 96 Nasal Cannula 12/16/22 12:55 66 13 103/59 L 95 Nasal Cannula 12/16/22 12:45 64 15 107/61 97 Nasal Cannula 12/16/22 12:35 67 15 103/64 96 Oxymask 12/16/22 12:25 71 17 89/58 L 95 Oxymask 12/16/22 12:15 36.2 C L 81 18 106/74 97 Oxymask 12/16/22 07:54 36.4 C L 72 18 129/61 97 Room Air O2 Flow Rate 12/16/22 14:23 12/16/22 14:22 2 12/16/22 13:25 2 12/16/22 13:25 2 12/16/22 13:05 2 12/16/22 12:55 2 12/16/22 12:45 2 12/16/22 12:35 5 12/16/22 12:25 5 12/16/22 12:15 8 12/16/22 07:54 Laboratory Results 12/16/22 12/16/22 12/16/22 07:36 07:50 08:08 Sodium 137 Potassium TNP Chloride 104 Carbon Dioxide 24 Anion Gap 9 BUN 31 H Creatinine 1.49 H Est Cr Clr Drug Dosing 38.1 Est GFR ( Amer) 40.2 Est GFR (Non-Af Amer) 34.7 BUN/Creatinine Ratio 20.8 H Glucose 132 H POC Glucose 142 H Calcium 9.6 Blood Type A Positive Antibody Screen NEGATIVE Crossmatch See Detail 12/16/22 12/16/22 12/16/22 08:54 12:15 14:21 Sodium Potassium 4.3 Chloride Carbon Dioxide Anion Gap BUN Creatinine Est Cr Clr Drug Dosing Est GFR ( Amer) Est GFR (Non-Af Amer) BUN/Creatinine Ratio Glucose POC Glucose 199 H 196 H Calcium Blood Type Antibody Screen Crossmatch 12/16/22 16:42 Sodium Potassium Chloride Carbon Dioxide Anion Gap BUN Creatinine Est Cr Clr Drug Dosing Est GFR ( Amer) Est GFR (Non-Af Amer) BUN/Creatinine Ratio Glucose POC Glucose 247 H Calcium Blood Type Antibody Screen Crossmatch
[2022-12-16] MEDS: INSULIN ASPART PER UNIT CHARGE SC SCH ×3 (15:18→20:55)
[2022-12-16] MEDS: oxyCODONE HCL IR 5 MG TAB (IMMEDIATE RELEASE) PO PRN ×2 (16:15→20:55)
[2022-12-16] MEDS: CLINDAMYCIN/D5W 600 MG/50 ML BAG IV SCH (17:26)
[2022-12-16] MEDS: POTASSIUM CHLORIDE 10 MEQ TABCR PO SCH (20:58)
[2022-12-16] MEDS: SUCRALFATE 1 GM TAB PO SCH (20:58)
[2022-12-16] MEDS: PROPRANOLOL HCL 60 MG LA CAP PO SCH (20:58)
[2022-12-16] MEDS: DOCUSATE SODIUM/SENNA 50/8.6MG TAB PO SCH (20:58)
[2022-12-16] MEDS: MONTELUKAST SODIUM 10 MG TABLET PO SCH (20:58)
[2022-12-16] MEDS: ATORVASTATIN 40 MG TAB PO SCH (20:58)
[2022-12-17] MEDS ORDERED: INSULIN ASPART PER UNIT CHARGE SC SCH
[2022-12-17] MEDS: CLINDAMYCIN/D5W 600 MG/50 ML BAG IV SCH (02:05)
[2022-12-17] MEDS ORDERED: COUGH DROP (SUGAR FREE) LOZ 24 LOZ/1 BOX BUCCAL STA (02:15)
[2022-12-17] MEDS ORDERED: COUGH DROP (SUGAR FREE) LOZ 24 LOZ/1 BOX BUCCAL ONE (02:17)
[2022-12-17] MEDS: oxyCODONE HCL IR 5 MG TAB (IMMEDIATE RELEASE) PO PRN ×2 (02:19→20:30)
[2022-12-17] MEDS: POLYETHYLENE (MIRALAX) 17 GM PACK PO SCH ×4 (05:17→23:40)
[2022-12-17 06:57] LABS: Basophils # (auto) 0.01 K/uL (0.00-0.20); Basophils % (auto) 0.1 %; Hemoglobin 9.5 g/dl (12.0-16.0); Immature Granulocytes # (auto) 0.06 K/uL (0.01-0.20); Immature Granulocytes % (auto) 0.6 %; Lymphocytes # (auto) 1.24 K/uL (1.20-3.40); Lymphocytes % (auto) 12.2 %; Mean Corpuscular Hemoglobin 31.8 pg (25.0-34.0); Mean Corpuscular Hgb Conc 32.8 g/dL (32.0-36.0); Mean Platelet Volume 9.9 fL (9.4-12.4); Monocytes # (auto) 1.06 K/uL (0.11-0.59); Monocytes % (auto) 10.4 %; Neutrophils # (auto) 7.82 K/uL (1.40-6.50); Neutrophils % (auto) 76.7 %; Platelet Count 236 K/uL (130-400); RDW Coefficient of Variation 12.4 % (11.5-14.5); RDW Standard Deviation 43.7 fL (36.4-46.3); Red Blood Count 2.99 M/uL (4.20-5.40); White Blood Count 10.19 K/ul (4.8-10.8)
[2022-12-17 07:18] LABS: BUN Creatinine Ratio 21.4 (10-20); Calcium 8.9 mg/dl (8.6-10.3); Creatinine Clr Calc Pharmacy 48.5 ml/min; Est GFR (African American) 53.9 ml/min; Est GFR (Non-African American) 46.5 ml/min; Potassium 4.8 mmol/L (3.5-5.1)
--- NOTE | 2022-12-17 08:30 | Pharmacy Report ---
Pharmacy Glycemic Short Note 2 - Date of Service December 17, 2022 - Glycemic Short BSG Results (Last 24 hours): 12/16/22 12/16/22 12/16/22 07:50 12:15 14:21 Glucose 132 H POC Glucose 199 H 196 H 12/16/22 12/16/22 12/16/22 16:42 20:38 23:52 Glucose POC Glucose 247 H 146 H 104 H 12/17/22 12/17/22 06:12 07:43 Glucose 163 H POC Glucose 141 H OUTPATIENT ANTIDIABETIC REGIMEN: * Lantus 20 units SC BID * Metformin 1000 mg PO daily * Victoza 0.6 mg SC daily HbA1c: 7.6% (11/22/22) ASSESSMENT: 12/17/22: * BSGs trended down nicely postoperatively w/ fasting BSG of 141 mg/dL this morning * BSG > 300 mg/dL at lunch - will give one-time IV insulin bolus, further tighten carb ratio, and add additional basal 12/16/22: * DL is a 72 year old female POD #0 s/p spinal surgery, received 8 mg IV dexamethasone in OR * Ordered dexamethasone 6 mg IV daily x 3 days starting tomorrow 12/17/22 * Preop BSG of 142 mg/dL, postop BSG of 199 mg/dL * Last dose of Lantus was 20 units last evening * Will give ~0.4 unit/kg basal now to cover steroids w/ weight-based stress of 3 Novolog PLAN FOR INPATIENT GLYCEMIC CONTROL: * Hold outpatient oral diabetes medications * Basal insulin * Lantus 35 units SQ daily this morning * Lantus 10 units SC x 1 at lunch * Lantus 45 units SC daily starting tomorrow (give with IV dexamethasone) * Bolus insulin * NovoLog per scale ACHS or Q6hrs while NPO * Goal Range: Low 110 mg/dL - High 140 mg/dL * Correction Factor: 20 mg/dL/unit * Nutritional / Prandial insulin per carb ratio of 1 unit per 5 grams CHO consumed
[2022-12-17] MEDS: TORSEMIDE 20 MG TAB PO SCH (08:31)
[2022-12-17] MEDS: POTASSIUM CHLORIDE 10 MEQ TABCR PO SCH ×2 (08:31→20:32)
[2022-12-17] MEDS: SPIRONOLACTONE 25 MG TAB PO SCH (08:31)
[2022-12-17] MEDS: SUCRALFATE 1 GM TAB PO SCH ×2 (08:31→20:33)
[2022-12-17] MEDS: CYANOCOBALAMIN (B-12) 500 MCG TABLET PO SCH (08:31)
[2022-12-17] MEDS: ASPIRIN 81 MG ECTAB PO SCH (08:31)
[2022-12-17] MEDS: amLODIPine BESYLATE 5 MG TAB PO SCH (08:31)
[2022-12-17] MEDS: CEROVITE ADV FORMULA TAB PO SCH (08:32)
[2022-12-17] MEDS: DULoxetine HCL 60 MG CAP PO SCH (08:32)
[2022-12-17] MEDS: LOSARTAN POTASSIUM 50 MG TAB PO SCH (08:32)
[2022-12-17] MEDS: PANTOprazole 40 MG TAB PO SCH (08:32)
[2022-12-17] MEDS: FLUTICASONE/VILANTEROL 200/25MCG 14 PUFFS/INHALER INH SCH (08:33)
[2022-12-17] MEDS: dexAMETHasone 6 MG in SYRINGE 0 ML IV SCH (08:33)
[2022-12-17] MEDS: INSULIN ASPART PER UNIT CHARGE SC SCH ×4 (08:36→20:30)
[2022-12-17] MEDS ORDERED: NON-FORMULARY MEDICATION (L.Acid-L.Rham-B.Breve-S.Therm 3 billion cell Tablet,Chewable) PO SCH (09:00)
[2022-12-17] MEDS ORDERED: NON-FORMULARY MEDICATION (Liraglutide [Victoza 2-Pak] 0.6 mg/0.1 mL (18 mg/3 mL) Pen Injec SQ SCH (09:00)
[2022-12-17] MEDS ORDERED: LANTUS PER UNIT CHARGE SC SCH (09:00)
[2022-12-17] MEDS ORDERED: NON-FORMULARY MEDICATION (Coq10 (Ubiquinol) 200 mg Capsule) PO SCH (09:00)
--- NOTE | 2022-12-17 10:27 | Orthopedic Progress Note ---
Date of Service December 17, 2022 Assessment & Plan (1) Neurogenic claudication due to lumbar spinal stenosis: Plan: This time initiate physical therapy monitor her CIELO output anticipate discharge home in the next few days. Admission and Anticipated Discharge Date Admission Date: December 16, 2022 Subjective Pain well controlled leg pain improved Physical Exam Physical Exam: Patient is in the chair at the bedside. She is comfortable. His strength testing. Results & Data Vital Signs (Past 12 Hours) Vital Signs Temp Pulse Resp BP Pulse Ox O2 Del Method O2 Flow Rate 12/17/22 07:30 36.5 C 74 16 101/66 91 Room Air 12/17/22 05:18 116/71 12/17/22 03:43 36.5 C 77 20 99/62 L 94 Nasal Cannula 1 12/16/22 23:55 36.4 C L 80 18 128/84 95 Room Air Queries Orthopedic Spine Acute Posthemorrhagic Anemia: Yes Obesity: Yes
[2022-12-17] MEDS ORDERED: INSULIN HUMAN REGULAR PER UNIT 8 UNITS in SYRINGE 7.92 ML IV ONE (12:00)
[2022-12-17] MEDS ORDERED: LANTUS PER UNIT CHARGE SC ONE (12:00)
--- NOTE | 2022-12-17 14:04 | Hospitalist Progress Note ---
Date of Service December 17, 2022 Assessment & Plan (1) Neurogenic claudication due to lumbar spinal stenosis: Plan: POD #1 - T12-L2 decompression/fusion. Medical problems include diabetes and hypertension - Pain control, DVT prophylaxis, activity per primary service - Encourage incentive spirometry - discussed importance with patient - Blood loss 350 ml -Postop CBC with hemoglobin of 9.5. (2) DM (diabetes mellitus): Plan: Pharmacy consulted for glycemic management - appreciate input Hold home metformin (3) HTN (hypertension): Plan: On amlodipine, losartan, spironolactone, torsemide and propranolol. Continue with holding parameters. (4) High cholesterol: Plan: Continue Lipitor (5) TIA (transient ischemic attack): Plan: On aspirin and Lipitor Plan Please note the above document was generated using voice recognition software. It may contain grammatical, syntax or spelling errors. Any formal questions or concerns about the content, text or information contained within the body of this dictation should be directly addressed to the provider for clarification Admission and Anticipated Discharge Date Admission Date: December 16, 2022 Subjective Patient seen and examined at bedside. She is sitting up on the chair at the side of the bed; not in distress. Reports that pain is well controlled. Passing gas; no bowel movements yet. No fever, no chills, shortness of breath or chest pain Review of Systems Review of Systems: All systems reviewed & are unremarkable except as noted in Subjective Physical Exam Physical Exam: Constitutional: WD/WN, vitals as above, NAD, sitting up in bed, pleasant, conversing easily Respiratory: normal respiratory effort, lungs clear to auscultation, no wheeze, rales, rhonchi. Normal insp/exp effort, no accessory muscle use Cardiovascular: RRR, no murmur, no edema Vessels: no JVD or carotid bruit Chest: normal inspection of chest Abdomen: normal bowel sounds, soft, nontender, no hepatosplenomegaly Musculoskeletal: no cyanosis or clubbing, extremities motor strength 5/5. CIELO drain in place with serosanguinous output. Skin: no rashes, warm and dry normal turgor Neurologic: PERRL, EOMI, accommodation nl, no face palsy, no dysarthria CN's II- XI intact bilaterally and moves all extremities Psychiatric: A+Ox3, euthymic affect Constitutional: well developed and well nourished; no acute distress Eyes: + anicteric sclerae ENMT: external ear and nose normal, oropharynx normal Neck: trachea midline Respiratory: no respiratory distress and no labored breathing Auscultation: lungs clear to auscultation bilaterally; no rales, no rhonchi and no wheezes Cardiovascular: Rate/Rhythm: regular rate and regular rhythm Gastrointestinal (Abdomen): Inspection/Auscultation: normal bowel sounds; abdomen not distended Percussion/Palpation: abdomen soft Musculoskeletal: Head/Neck/Chest: normocephalic, head atraumatic and neck supple Skin: no jaundice Neurologic: moves all extremities; no focal motor deficits and not confused Psychiatric: A+Ox3, euthymic affect Results & Data Results & Data Vital Signs (Past 12 Hours) Vital Signs Temp Pulse Resp BP Pulse Ox O2 Del Method O2 Flow Rate 12/17/22 07:30 36.5 C 74 16 101/66 91 Room Air 12/17/22 05:18 116/71 12/17/22 03:43 36.5 C 77 20 99/62 L 94 Nasal Cannula 1 Laboratory Results Laboratory Results WBC 10.19 K/ul (4.8-10.8) 12/17/22 06:12 RBC 2.99 M/uL (4.20-5.40) L 12/17/22 06:12 Hgb 9.5 g/dl (12.0-16.0) L 12/17/22 06:12 Hct 29.0 % (37.0-47.0) L 12/17/22 06:12 MCV 97.0 fL (80.0-100.0) 12/17/22 06:12 MCH 31.8 pg (25.0-34.0) 12/17/22 06:12 MCHC 32.8 g/dL (32.0-36.0) 12/17/22 06:12 RDW Std Deviation 43.7 fL (36.4-46.3) 12/17/22 06:12 RDW Coeff of Kelsey 12.4 % (11.5-14.5) 12/17/22 06:12 Plt Count 236 K/uL (130-400) 12/17/22 06:12 MPV 9.9 fL (9.4-12.4) 12/17/22 06:12 Immature Gran % (Auto) 0.6 % 12/17/22 06:12 Neut % (Auto) 76.7 % 12/17/22 06:12 Lymph % (Auto) 12.2 % 12/17/22 06:12 Bradley % (Auto) 10.4 % 12/17/22 06:12 Eos % (Auto) 0.0 % 12/17/22 06:12 Baso % (Auto) 0.1 % 12/17/22 06:12 Neut # (Auto) 7.82 K/uL (1.40-6.50) H 12/17/22 06:12 Lymph # (Auto) 1.24 K/uL (1.20-3.40) 12/17/22 06:12 Bradley # (Auto) 1.06 K/uL (0.11-0.59) H 12/17/22 06:12 Eos # (Auto) 0.00 K/uL (0.00-0.50) 12/17/22 06:12 Baso # (Auto) 0.01 K/uL (0.00-0.20) 12/17/22 06:12 Immature Gran # (Auto) 0.06 K/uL (0.01-0.20) 12/17/22 06:12 Sodium 136 mmol/L (136-145) 12/17/22 06:12 Potassium 4.8 mmol/L (3.5-5.1) 12/17/22 06:12 Chloride 104 mmol/L (98-107) 12/17/22 06:12 Carbon Dioxide 27 mmol/L (21-32) 12/17/22 06:12 Anion Gap 5 (3-11) 12/17/22 06:12 BUN 25 mg/dl (6-23) H 12/17/22 06:12 Creatinine 1.17 mg/dl (0.6-1.2) D 12/17/22 06:12 Est Cr Clr Drug Dosing 48.5 ml/min 12/17/22 06:12 Est GFR ( Amer) 53.9 ml/min 12/17/22 06:12 Est GFR (Non-Af Amer) 46.5 ml/min 12/17/22 06:12 BUN/Creatinine Ratio 21.4 (10-20) H 12/17/22 06:12 Glucose 163 mg/dl (70-99(Fasting)) H 12/17/22 06:12 POC Glucose 323 mg/dl (70-99) H* 12/17/22 11:48 Calcium 8.9 mg/dl (8.6-10.3) 12/17/22 06:12 Blood Type A Positive 12/16/22 07:36 Antibody Screen NEGATIVE 12/16/22 07:36 Crossmatch See Detail 12/16/22 07:36 Impressions Lumbar Spine X-Ray 12/16/22 09:05 INTRAOPERATIVE RADIOGRAPHS CLINICAL HISTORY: Thoracolumbar spinal fusion. Fluoro time: 46 seconds Ka,r: 29.38 mGy FINDINGS: 5 spot fluoroscopic views of the thoracolumbar spine are presented. There is postsurgical change from extensive thoracolumbar spinal fusion surgery. Discectomy change is noted at a single level. The orthopedic hardware appears intact. The exact fusion levels cannot be delineated on the provided images. IMPRESSION: Intraoperative images from thoracolumbar spinal fusion surgery as above. Electronically signed by: Orlando Chapman M.D. 12/16/2022 1:17 PM
[2022-12-17] MEDS: MONTELUKAST SODIUM 10 MG TABLET PO SCH (20:31)
[2022-12-17] MEDS: DOCUSATE SODIUM/SENNA 50/8.6MG TAB PO SCH (20:32)
[2022-12-17] MEDS: PROPRANOLOL HCL 60 MG LA CAP PO SCH (20:33)
[2022-12-17] MEDS: ATORVASTATIN 40 MG TAB PO SCH (20:34)
[2022-12-18] MEDS: oxyCODONE HCL IR 5 MG TAB (IMMEDIATE RELEASE) PO PRN (05:38)
[2022-12-18] MEDS: POLYETHYLENE (MIRALAX) 17 GM PACK PO SCH ×4 (05:39→23:26)
[2022-12-18] MEDS: FLUTICASONE/VILANTEROL 200/25MCG 14 PUFFS/INHALER INH SCH (08:26)
[2022-12-18] MEDS: POTASSIUM CHLORIDE 10 MEQ TABCR PO SCH ×2 (08:27→20:42)
[2022-12-18] MEDS: LOSARTAN POTASSIUM 50 MG TAB PO SCH (08:27)
[2022-12-18] MEDS: CYANOCOBALAMIN (B-12) 500 MCG TABLET PO SCH (08:27)
[2022-12-18] MEDS: amLODIPine BESYLATE 5 MG TAB PO SCH (08:27)
[2022-12-18] MEDS: SUCRALFATE 1 GM TAB PO SCH ×2 (08:27→20:42)
[2022-12-18] MEDS: SPIRONOLACTONE 25 MG TAB PO SCH (08:27)
[2022-12-18] MEDS: CEROVITE ADV FORMULA TAB PO SCH (08:28)
[2022-12-18] MEDS: TORSEMIDE 20 MG TAB PO SCH (08:28)
[2022-12-18] MEDS: CHOLECALCIFEROL 5,000 UNITS 125 MCG TAB PO SCH (08:28)
[2022-12-18] MEDS: ASPIRIN 81 MG ECTAB PO SCH (08:28)
[2022-12-18] MEDS: PANTOprazole 40 MG TAB PO SCH (08:28)
[2022-12-18] MEDS: DULoxetine HCL 60 MG CAP PO SCH (08:28)
[2022-12-18] MEDS: LANTUS PER UNIT CHARGE SC SCH (08:31)
[2022-12-18] MEDS: INSULIN ASPART PER UNIT CHARGE SC SCH ×4 (08:32→22:08)
[2022-12-18] MEDS: dexAMETHasone 6 MG in SYRINGE 0 ML IV SCH (08:39)
--- NOTE | 2022-12-18 11:24 | Orthopedic Progress Note ---
Date of Service December 18, 2022 Assessment & Plan (1) Neurogenic claudication due to lumbar spinal stenosis: Plan: This time continue physical therapy monitor CIELO output anticipate discharge home tomorrow. Admission and Anticipated Discharge Date Admission Date: December 16, 2022 Subjective Patient's back pain is controlled leg symptoms improved Physical Exam Physical Exam: Patient is up and ambulating halls. Skin strength testing. Appears comf ortable. Results & Data Vital Signs (Past 12 Hours) Vital Signs Temp Pulse Resp BP Pulse Ox O2 Del Method 12/18/22 07:23 36.9 C 73 18 99/65 L 95 Room Air Queries Orthopedic Spine Acute Posthemorrhagic Anemia: Yes Obesity: Yes
--- NOTE | 2022-12-18 12:51 | Hospitalist Progress Note ---
Date of Service December 18, 2022 Assessment & Plan (1) Neurogenic claudication due to lumbar spinal stenosis: Plan: POD #2 - T12-L2 decompression/fusion. Medical problems include diabetes and hypertension - Pain control, DVT prophylaxis, activity per primary service - Encourage incentive spirometry - discussed importance with patient - Blood loss 350 ml -Postop CBC with hemoglobin of 9.5. Consistent with acute blood loss anemia. Repeat outpatient CBC (2) DM (diabetes mellitus): Plan: Pharmacy consulted for glycemic management - appreciate input Hold home metformin (3) HTN (hypertension): Plan: On amlodipine, losartan, spironolactone, torsemide and propranolol. Continue with holding parameters. (4) High cholesterol: Plan: Continue Lipitor (5) TIA (transient ischemic attack): Plan: On aspirin and Lipitor Plan Please note the above document was generated using voice recognition software. It may contain grammatical, syntax or spelling errors. Any formal questions or concerns about the content, text or information contained within the body of this dictation should be directly addressed to the provider for clarification Admission and Anticipated Discharge Date Admission Date: December 16, 2022 Subjective Patient seen and examined at bedside. She is sitting up on a chair at side of the bed comfortably. She is getting out of bed and walking; denies any pain or difficulty. Review of Systems Review of Systems: All systems reviewed & are unremarkable except as noted in Subjective Physical Exam Physical Exam: Constitutional: WD/WN, vitals as above, NAD, sitting up in bed, pleasant, conversing easily Respiratory: normal respiratory effort, lungs clear to auscultation, no wheeze, rales, rhonchi. Normal insp/exp effort, no accessory muscle use Cardiovascular: RRR, no murmur, no edema Vessels: no JVD or carotid bruit Chest: normal inspection of chest Abdomen: normal bowel sounds, soft, nontender, no hepatosplenomegaly Musculoskeletal: no cyanosis or clubbing, extremities motor strength 5/5. CIELO drain in place with serosanguinous output. Skin: no rashes, warm and dry normal turgor Neurologic: PERRL, EOMI, accommodation nl, no face palsy, no dysarthria CN's II- XI intact bilaterally and moves all extremities Psychiatric: A+Ox3, euthymic affect Results & Data Results & Data Vital Signs (Past 12 Hours) Vital Signs Temp Pulse Resp BP Pulse Ox O2 Del Method 12/18/22 07: 36.9 C 73 18 99/65 L 95 Room Air Laboratory Results Laboratory Results WBC 10.19 K/ul (4.8-10.8) 12/17/22 06:12 RBC 2.99 M/uL (4.20-5.40) L 12/17/22 06:12 Hgb 9.5 g/dl (12.0-16.0) L 12/17/22 06:12 Hct 29.0 % (37.0-47.0) L 12/17/22 06:12 MCV 97.0 fL (80.0-100.0) 12/17/22 06:12 MCH 31.8 pg (25.0-34.0) 12/17/22 06:12 MCHC 32.8 g/dL (32.0-36.0) 12/17/22 06:12 RDW Std Deviation 43.7 fL (36.4-46.3) 12/17/22 06:12 RDW Coeff of Kelsey 12.4 % (11.5-14.5) 12/17/22 06:12 Plt Count 236 K/uL (130-400) 12/17/22 06:12 MPV 9.9 fL (9.4-12.4) 12/17/22 06:12 Immature Gran % (Auto) 0.6 % 12/17/22 06:12 Neut % (Auto) 76.7 % 12/17/22 06:12 Lymph % (Auto) 12.2 % 12/17/22 06:12 Ness % (Auto) 10.4 % 12/17/22 06:12 Eos % (Auto) 0.0 % 12/17/22 06:12 Baso % (Auto) 0.1 % 12/17/22 06:12 Neut # (Auto) 7.82 K/uL (1.40-6.50) H 12/17/22 06:12 Lymph # (Auto) 1.24 K/uL (1.20-3.40) 12/17/22 06:12 Ness # (Auto) 1.06 K/uL (0.11-0.59) H 12/17/22 06:12 Eos # (Auto) 0.00 K/uL (0.00-0.50) 12/17/22 06:12 Baso # (Auto) 0.01 K/uL (0.00-0.20) 12/17/22 06:12 Immature Gran # (Auto) 0.06 K/uL (0.01-0.20) 12/17/22 06:12 Sodium 136 mmol/L (136-145) 12/17/22 06:12 Potassium 4.8 mmol/L (3.5-5.1) 12/17/22 06:12 Chloride 104 mmol/L (98-107) 12/17/22 06:12 Carbon Dioxide 27 mmol/L (21-32) 12/17/22 06:12 Anion Gap 5 (3-11) 12/17/22 06:12 BUN 25 mg/dl (6-23) H 12/17/22 06:12 Creatinine 1.17 mg/dl (0.6-1.2) D 12/17/22 06:12 Est Cr Clr Drug Dosing 48.5 ml/min 12/17/22 06:12 Est GFR ( Amer) 53.9 ml/min 12/17/22 06:12 Est GFR (Non-Af Amer) 46.5 ml/min 12/17/22 06:12 BUN/Creatinine Ratio 21.4 (10-20) H 12/17/22 06:12 Glucose 163 mg/dl (70-99(Fasting)) H 12/17/22 06:12 POC Glucose 222 mg/dl (70-99) H 12/18/22 11:36 Calcium 8.9 mg/dl (8.6-10.3) 12/17/22 06:12 Hepatitis C Ab (EIA) NON-REACTIVE (NON-REACTIVE) 12/17/22 06:12 Blood Type A Positive 12/16/22 07:36 Antibody Screen NEGATIVE 12/16/22 07:36 Crossmatch See Detail 12/16/22 07:36 Impressions Lumbar Spine X-Ray 12/16/22 09:05 INTRAOPERATIVE RADIOGRAPHS CLINICAL HISTORY: Thoracolumbar spinal fusion. Fluoro time: 46 seconds Ka,r: 29.38 mGy FINDINGS: 5 spot fluoroscopic views of the thoracolumbar spine are presented. There is postsurgical change from extensive thoracolumbar spinal fusion surgery. Discectomy change is noted at a single level. The orthopedic hardware appears intact. The exact fusion levels cannot be delineated on the provided images. IMPRESSION: Intraoperative images from thoracolumbar spinal fusion surgery as above. Electronically signed by: Orlando Chapman M.D. 12/16/2022 1:17 PM
[2022-12-18] MEDS: PROPRANOLOL HCL 60 MG LA CAP PO SCH (20:42)
[2022-12-18] MEDS: ATORVASTATIN 40 MG TAB PO SCH (20:42)
[2022-12-18] MEDS: MONTELUKAST SODIUM 10 MG TABLET PO SCH (20:42)
[2022-12-18] MEDS: DOCUSATE SODIUM/SENNA 50/8.6MG TAB PO SCH (20:42)
[2022-12-18] MEDS: ACETAMINOPHEN 500 MG TAB PO PRN (22:13)
[2022-12-19] MEDS: POLYETHYLENE (MIRALAX) 17 GM PACK PO SCH ×2 (05:48→12:01)
[2022-12-19] MEDS: ACETAMINOPHEN 500 MG TAB PO PRN (05:51)
--- NOTE | 2022-12-19 07:49 | Pharmacy Report ---
Pharmacy Glycemic Short Note 2 - Date of Service December 19, 2022 - Glycemic Short BSG Results (Last 24 hours): 12/18/22 12/18/22 12/18/22 11:36 16:32 20:20 POC Glucose 222 H 241 H 215 H 12/19/22 07:23 POC Glucose 155 H OUTPATIENT ANTIDIABETIC REGIMEN: * Lantus 20 units SC BID * Metformin 1000 mg PO daily * Victoza 0.6 mg SC daily HbA1c: 7.6% (11/22/22) ASSESSMENT: 12/19/22: * Blood sugars above goal all day yesterday except for [id number]. Fasting at goal today at 155mg/dl. * Continue basal, tighten CF/CR as patient on 3rd post op dose of IV dexamethasone today, will need to loosen as steroid effects wear off tomorrow. 12/17/22: * BSGs trended down nicely postoperatively w/ fasting BSG of 141 mg/dL this morning * BSG > 300 mg/dL at lunch - will give one-time IV insulin bolus, further tighten carb ratio, and add additional basal 12/16/22: * DL is a 72 year old female POD #0 s/p spinal surgery, received 8 mg IV dexamethasone in OR * Ordered dexamethasone 6 mg IV daily x 3 days starting tomorrow 12/17/22 * Preop BSG of 142 mg/dL, postop BSG of 199 mg/dL * Last dose of Lantus was 20 units last evening * Will give ~0.4 unit/kg basal now to cover steroids w/ weight-based stress of 3 Novolog PLAN FOR INPATIENT GLYCEMIC CONTROL: * Hold outpatient diabetes medications * Basal insulin * Lantus 45 units SQ Daily * Bolus insulin * NovoLog per scale ACHS or Q6hrs while NPO * Goal Range: Low 110 mg/dL - High 140 mg/dL * Correction Factor: 12 mg/dL/unit * Nutritional / Prandial insulin per carb ratio of 1 unit per 3 grams CHO consumed
[2022-12-19] MEDS: PANTOprazole 40 MG TAB PO SCH (07:57)
[2022-12-19] MEDS: POTASSIUM CHLORIDE 10 MEQ TABCR PO SCH (07:57)
[2022-12-19] MEDS: LOSARTAN POTASSIUM 50 MG TAB PO SCH (07:57)
[2022-12-19] MEDS: SUCRALFATE 1 GM TAB PO SCH (07:57)
[2022-12-19] MEDS: ASPIRIN 81 MG ECTAB PO SCH (07:57)
[2022-12-19] MEDS: DULoxetine HCL 60 MG CAP PO SCH (07:57)
[2022-12-19] MEDS: CEROVITE ADV FORMULA TAB PO SCH (07:58)
[2022-12-19] MEDS: amLODIPine BESYLATE 5 MG TAB PO SCH (07:58)
[2022-12-19] MEDS: CYANOCOBALAMIN (B-12) 500 MCG TABLET PO SCH (07:58)
[2022-12-19] MEDS: TORSEMIDE 20 MG TAB PO SCH (07:58)
[2022-12-19] MEDS: SPIRONOLACTONE 25 MG TAB PO SCH (07:58)
[2022-12-19] MEDS: FLUTICASONE/VILANTEROL 200/25MCG 14 PUFFS/INHALER INH SCH (07:59)
[2022-12-19] MEDS: dexAMETHasone 6 MG in SYRINGE 0 ML IV SCH (07:59)
[2022-12-19] MEDS: INSULIN ASPART PER UNIT CHARGE SC SCH ×2 (08:04→12:00)
[2022-12-19] MEDS: LANTUS PER UNIT CHARGE SC SCH (08:09)
--- NOTE | 2022-12-19 08:32 | Discharge Summary ---
Date of Service December 19, 2022 Admission HPI Per Admitting Provider This is a 72-year-old female known to us presents with chronic persistent back and leg pain after failing course of nonoperative care she is here for surgical invention. Principal Diagnosis Lumbar spinal stenosis with neurogenic claudication Discharge Data Allergies Allergy/AdvReac Type Severity Reaction Status Date / Time cefaclor Allergy Unknown rash/swelli Verified 12/16/22 08:06 ng Cephalosporins Allergy Unknown RASH/SWELLI Verified 12/16/22 08:06 NG erythromycin base Allergy Unknown rash,edema, Verified 12/16/22 08:06 redness gatifloxacin Allergy Unknown SWELLING Verified 12/16/22 08:06 AND RED RASH Macrolide Antibiotics Allergy Unknown SWELLING Verified 12/16/22 08:06 Penicillins Allergy Unknown RASH Verified 12/16/22 08:06 Quinolones Allergy Unknown RASH/SWELLI Verified 12/16/22 08:06 NG tetracycline Allergy Unknown SWELLING Verified 12/16/22 08:06 AND RED RASH tetanus toxoid, adsorbed AdvReac Unknown "TETANUS Verified 12/16/22 08:06 SERUM"-LG HOT SOLID LUMP AT INJECTION SITE Consultations 12/16/22 14:07 Consult Hospitalist Routine Procedures Performed Operation Date: 12/16/22 09:05 Actual Procedures p T12-L2 Decompression, T11-L2 Fusion, Spinal Cord Monitoring(Not Applicable) - Chase Goss DO Ordered Studies 12/16/22 09:05 FL lumbar spine 2-3V Routine Hospital Course (1) Neurogenic claudication due to lumbar spinal stenosis: Patient with lumbar decompression fusion tolerated as well as taken orthopedic for postoperative. Postop day #1 she was up and ambulating progressed t hroughout her hospital stay. Excellent strength testing. CIELO drain decreasing probably. Subsequent discharge home. Discharge orders instructions found in chart for further review. Total Time Total Time Spent Total Time Spent (In Minutes): 20 minutes Discharge Plan Discharge Items Patient Disposition: Home - Self-Care Reason For Visit: Intervertebral Disc Disorders with Radiculopathy, Discharge Diagnosis: Lumbar spinal stenosis with radiculopathy Activity: As commented below Non-emergency contact: Primary Care Provider Call non-emergency contact if: you have any medication questions Follow-up/Referrals: Laith Ga [Primary Care Provider] - Diet: Regular Addtl Attending Provider Instructions: ACTIVITY RECOMMENDATIONS: SELF CARE INSTRUCTIONS AFTER THORACIC/LUMBAR FUSIONS 1. You may walk to your tolerance. It is good exercise for your legs and back. Expect some back and intermittent leg aches and pains. 2. You may perform "counter-top" level activities (make a sandwich, leanne with a project, etc.). 3. No bending or lifting of more than 10 pounds or back twisting of any nature (roll like a log when turning in bed). 4. You may ride in a car for 20-30 minutes at a time. No driving until after your first visit with your doctor. 5. Frequent changes of position and restricting sitting to 30 minutes at a time will help limit the amount of back spasms and stiffness you may experience. 6. You may discontinue the use of ambulatory aids (cane, crutches, etc.) once your strength and confidence allow. 7. You may senior systems software engineer the shower and let water strike your incision when you arrive home at least once daily. Do not take a tub bath, sit in a hot tub or go into a swimming pool until after your first recheck in the office. SPECIAL CARE INSTRUCTIONS: VERY IMPORTANT TO READ AND REVIEW A. Your surgical incision has been closed with a cosmetic suture under the skin that will dissolve in about 6 weeks. In 14 days, you can use a pair of clean scissors and cut the suture that is left outside of the skin at the ends of your incision. 1. The small skin tapes can be removed 7 days after surgery if they have not fallen off by that point. 2. You may keep the wound open to air as much as possible to promote healing after post-op day number 5 unless told otherwise by your doctor. 3. If you think the wound looks like it is becoming infected (redness or worsening drainage) and/or you are experiencing fever, chill or worsening back pain and muscle spasms, contact the office so that we may evaluate you as soon as possible. B. Complications are uncommon, but please contact us if you have any signs or symptoms of: 1. wound infection (fever higher than 102.5 degrees F, redness, separation of wound, drainage, or increasing pain from the incision) 2. blood clots in legs (pain, swelling, redness and warmth in legs) 3. urinary tract infection (fever higher than 102.5 degrees F, burning upon urination or increased frequency of urination) 4. nerve problems (inability to walk on your toes or heels, numbness, loss of bowel or bladder control) 5. any other symptoms that concern you C. Please call the office at if you have any concerns or questions about your operation or recovery. D. No smoking! Smoking drastically decreases the chance of a solid fusion. E. Do not take any anti-inflammatory medications (Indocin, Advil, Motrin, Aspirin, Naprosyn, etc.) as these may inhibit the chance of a solid fusion. Tylenol is okay to take for pain. MANAGING PAIN AFTER SPINAL SURGERY 1. Narcotic medication is intended for short-term use and will be provided for surgical pain. Surgical pain usually lasts for a period of 4-6 weeks. Narcotic medication includes Percocet, Vicodin, Darvocet, Tylenol #3 or Lortab. 2. Longer-term pain is more appropriately treated with non-narcotic medication such as Tylenol ES. 3. Muscle spasm is not appropriately treated with narcotics. Muscle relaxers such as Soma, Flexeril or Skelaxin can be used along with Tylenol ES. 4. Remember that we all live with some "aches and pains". This is not unusual or uncommon after an injury or as we get older. a. Back pain is expected and may include muscle spasms for 4 to 6 weeks after surgery. The pain should gradually improve. If the pain worsens for no apparent reason, please contact the office. b. Intermittent leg pain may also be experienced and should not be concerned about unless it worsens for no apparent reason. If so, please contact the office. 5. We will provide appropriate medication within the normal guidelines of their prescribed use. We will also be very cautious and aware of potential abuse and extended duration of patients' medication needs. a. Pain medications are for your comfort and to assist with sleep and rest so that the tissue can heal. They are not provided in order to return to normal activity and should not be used through the day. To do so or worsening pain at night can result from ongoing tissue damage and development of tolerance to the prescribed medicine. 6. Please allow 2-3 days to process refills. Prescriptions will not be mailed but must be picked up at the office. FOLLOW UP VISIT: Keep your scheduled follow-up appointment. Any questions, please call the office at . Pending Studies at Discharge: No Stand-Alone Forms: My [facility] [employer], Smoking Cessation Medications and DC Order Prescriptions: New tramadol 50 mg tablet 50 mg PO Q6H PRN (Reason: pain, moderate) Qty: 30 0RF oxycodone 5 mg tablet 5 mg PO Q6H PRN (Reason: pain) Qty: 30 0RF Continued atorvastatin 40 mg Tablet 40 mg PO HS sucralfate [Carafate] 1 gram Tablet 1 g PO BID amlodipine 5 mg Tablet 5 mg PO QAM aspirin 81 mg Tablet,Delayed Release (Dr/Ec) 81 mg PO QAM spironolactone [Aldactone] 25 mg Tablet 25 mg PO QAM pantoprazole 40 mg Tablet,Delayed Release (Dr/Ec) 40 mg PO QAM metformin 1,000 mg Tablet 1,000 mg PO QAM montelukast 10 mg Tablet 10 mg PO HS irbesartan 300 mg Tablet 300 mg PO QAM Victoza 2-Stephane 0.6 mg/0.1 mL (18 mg/3 mL) Pen Injector 0.6 mg SUBCUT QAM duloxetine 60 mg Capsule, Delayed Rel Sprinkle 60 mg PO QAM fluticasone propionate 50 mcg/actuation Saxon,Suspension 1 spray INTRANASAL BID PRN (Reason: ALLERGY RELIEF) [id number] Tablet 1 tab PO QAM Patient Comments: centrum silver Calcium 600 + D(3) 600 mg calcium- 200 unit Capsule 1 cap PO QAM coQ10 (ubiquinol) 200 mg Capsule 400 mg PO QAM biotin 10,000 mcg Tablet,Disintegrating 10,000 mcg PO QAM cyanocobalamin (vitamin B-12) 1,000 mcg Tablet 1,000 mcg PO QAM docusate sodium [Stool Softener] 100 mg Tablet 250 mg PO QAM cholecalciferol (vitamin D3) [Vitamin D3] 25 mcg (1,000 unit) Tablet 5,000 unit PO [id number] Patient Comments: mon , wed and fri L.acid-L.rham-B.breve-S.therm 3 billion cell Tablet,Chewable 1 tab PO QAM acetaminophen 650 mg Tablet Extended Release 650 mg PO UD PRN (Reason: Pain) torsemide 20 mg Tablet 40 mg PO QAM insulin glargine [Lantus Solostar U-100 Insulin] 100 unit/mL (3 mL) Insulin Pen 20 unit SUBCUT BID fluticasone propion-salmeterol [Advair Diskus] 250-50 mcg/dose Blister With Device 1 inh INHALATION BID albuterol sulfate 90 mcg/actuation Hfa Aerosol Inhaler 1 inh INHALATION UD PRN (Reason: suspected asthma) potassium chloride 10 mEq Capsule, Extended Release 10 meq PO BID Patient Comments: 1 with morning meal and 1 with evening meal propranolol 60 mg Capsule,Extended Release 24 Hr 60 mg PO HS Discharge Orders: Discharge Order (Routine); Ordered 12/19/22 Ordered By: Chase Goss Admission Data Admit Date/Time: 12/16/22 11:58 Attending Provider: Chase Goss Admit Provider: Chase Goss Primary Care Provider: Laith Ga Other Providers: Jazzy Morales ; Ventura Arias
--- NOTE | 2022-12-19 14:18 | Hospitalist Progress Note ---
Date of Service December 19, 2022 Assessment & Plan (1) Neurogenic claudication due to lumbar spinal stenosis: Plan: POD #3 - T12-L2 decompression/fusion. Medical problems include diabetes and hypertension - Pain control, DVT prophylaxis, activity per primary service - Encourage incentive spirometry - discussed importance with patient - Blood loss 350 ml -Postop CBC with hemoglobin of 9.5. Consistent with acute blood loss anemia. Repeat outpatient CBC (2) DM (diabetes mellitus): Plan: Pharmacy consulted for glycemic management Hold home metformin (3) HTN (hypertension): Plan: On amlodipine, losartan, spironolactone, torsemide and propranolol. Continue with holding parameters. (4) High cholesterol: Plan: Continue Lipitor (5) TIA (transient ischemic attack): Plan: On aspirin and Lipitor Plan Please note the above document was generated using voice recognition software. It may contain grammatical, syntax or spelling errors. Any formal questions or concerns about the content, text or information contained within the body of this dictation should be directly addressed to the provider for clarification Admission and Anticipated Discharge Date Admission Date: December 16, 2022 Subjective Patient seen and examined at bedside. She is sitting up on the chair comfortably; not in distress. Denies fever, chills, chest pain or shortness of breath. Review of Systems Review of Systems: All systems reviewed & are unremarkable except as noted in Subjective Physical Exam Physical Exam: Constitutional: WD/WN, vitals as above, NAD, sitting up in bed, pleasant, conversing easily Respiratory: normal respiratory effort, lungs clear to auscultation, no wheeze, rales, rhonchi. Normal insp/exp effort, no accessory muscle use Cardiovascular: RRR, no murmur, no edema Vessels: no JVD or carotid bruit Chest: normal inspection of chest Abdomen: normal bowel sounds, soft, nontender, no hepatosplenomegaly Musculoskeletal: no cyanosis or clubbing, extremities motor strength 5/5. Skin: no rashes, warm and dry normal turgor Neurologic: PERRL, EOMI, accommodation nl, no face palsy, no dysarthria CN's II- XI intact bilaterally and moves all extremities Psychiatric: A+Ox3, euthymic affect Results & Data Results & Data Vital Signs (Past 12 Hours) Vital Signs Temp Pulse Resp BP BP Pulse Ox O2 Del Method 12/19/22 08:49 36.8 C 69 18 107/64 104/65 95 12/19/22 07:18 36.3 C L 69 18 107/64 95 Room Air Laboratory Results Laboratory Results WBC 10.19 K/ul (4.8-10.8) 12/17/22 06:12 RBC 2.99 M/uL (4.20-5.40) L 12/17/22 06:12 Hgb 9.5 g/dl (12.0-16.0) L 12/17/22 06:12 Hct 29.0 % (37.0-47.0) L 12/17/22 06:12 MCV 97.0 fL (80.0-100.0) 12/17/22 06:12 MCH 31.8 pg (25.0-34.0) 12/17/22 06:12 MCHC 32.8 g/dL (32.0-36.0) 12/17/22 06:12 RDW Std Deviation 43.7 fL (36.4-46.3) 12/17/22 06:12 RDW Coeff of Kelsey 12.4 % (11.5-14.5) 12/17/22 06:12 Plt Count 236 K/uL (130-400) 12/17/22 06:12 MPV 9.9 fL (9.4-12.4) 12/17/22 06:12 Immature Gran % (Auto) 0.6 % 12/17/22 06:12 Neut % (Auto) 76.7 % 12/17/22 06:12 Lymph % (Auto) 12.2 % 12/17/22 06:12 Mclean % (Auto) 10.4 % 12/17/22 06:12 Eos % (Auto) 0.0 % 12/17/22 06:12 Baso % (Auto) 0.1 % 12/17/22 06:12 Neut # (Auto) 7.82 K/uL (1.40-6.50) H 12/17/22 06:12 Lymph # (Auto) 1.24 K/uL (1.20-3.40) 12/17/22 06:12 Mclean # (Auto) 1.06 K/uL (0.11-0.59) H 12/17/22 06:12 Eos # (Auto) 0.00 K/uL (0.00-0.50) 12/17/22 06:12 Baso # (Auto) 0.01 K/uL (0.00-0.20) 12/17/22 06:12 Immature Gran # (Auto) 0.06 K/uL (0.01-0.20) 12/17/22 06:12 Sodium 136 mmol/L (136-145) 12/17/22 06:12 Potassium 4.8 mmol/L (3.5-5.1) 12/17/22 06:12 Chloride 104 mmol/L (98-107) 12/17/22 06:12 Carbon Dioxide 27 mmol/L (21-32) 12/17/22 06:12 Anion Gap 5 (3-11) 12/17/22 06:12 BUN 25 mg/dl (6-23) H 12/17/22 06:12 Creatinine 1.17 mg/dl (0.6-1.2) D 12/17/22 06:12 Est Cr Clr Drug Dosing 48.5 ml/min 12/17/22 06:12 Est GFR ( Amer) 53.9 ml/min 12/17/22 06:12 Est GFR (Non-Af Amer) 46.5 ml/min 12/17/22 06:12 BUN/Creatinine Ratio 21.4 (10-20) H 12/17/22 06:12 Glucose 163 mg/dl (70-99(Fasting)) H 12/17/22 06:12 POC Glucose 187 mg/dl (70-99) H 12/19/22 11:45 Calcium 8.9 mg/dl (8.6-10.3) 12/17/22 06:12 Hepatitis C Ab (EIA) NON-REACTIVE (NON-REACTIVE) 12/17/22 06:12 Blood Type A Positive 12/16/22 07:36 Antibody Screen NEGATIVE 12/16/22 07:36 Crossmatch See Detail 12/16/22 07:36 Impressions Lumbar Spine X-Ray 12/16/22 09:05 INTRAOPERATIVE RADIOGRAPHS CLINICAL HISTORY: Thoracolumbar spinal fusion. Fluoro time: 46 seconds Ka,r: 29.38 mGy FINDINGS: 5 spot fluoroscopic views of the thoracolumbar spine are presented. There is postsurgical change from extensive thoracolumbar spinal fusion surgery. Discectomy change is noted at a single level. The orthopedic hardware appears intact. The exact fusion levels cannot be delineated on the provided images. IMPRESSION: Intraoperative images from thoracolumbar spinal fusion surgery as above. Electronically signed by: Orlando Chapman M.D. 12/16/2022 1:17 PM
== END 2022-12-19 14:18 | disposition home or self-care (01) | DRG 454 ==
LOC: ASU 07:11 → 3E 11:58